=== PATIENT | female | born 1945 | race Caucasian/White ===

== ENCOUNTER 2018-12-15 21:02 | Emergency (ER) | payer OTHER ==
[~2018-12-15] VITALS: Ht 170.2 cm; Wt 77.1 kg
[~2018-12-15 21:02] MED LIST: ASPIRIN81 M2 PO; IBUPROFEN 600600 M1 PO; KEFLEX500 MG PO; LOVASTATIN 20 M20 MG PO; NORCO 5-325 TA1 EACH PO; REQUIP 0.25 M0.25 M1 PO
[2018-12-15] MEDS ORDERED: ACETAMINOPHEN-1 EAC1 PO (21:47)
[2018-12-15 22:27] VITALS: BP 128/87
== END 2018-12-15 22:30 | disposition home or self-care (01) ==
LOC: M.ERS 21:02
DX: S93.402A Sprain of unspecified ligament of left ankle, initial encounter (principal); W11.XXXA Fall on and from ladder, initial encounter; Y93.89 Activity, other specified; Y92.89 Other specified places as the place of occurrence of the external cause; Y99.8 Other external cause status; Z88.0 Allergy status to penicillin

== ENCOUNTER 2019-02-23 06:05 | Emergency (ER) | payer OTHER ==
[~2019-02-23] VITALS: Ht 167.6 cm; Wt 73.5 kg
[~2019-02-23 06:05] MED LIST changes: +ACETAMINOPHEN-1 EAC1 PO
[2019-02-23] MEDS ORDERED: NITROFURANTOIN25 MG PO (06:28)
[2019-02-23] MEDS ORDERED: ALLEGRA-D 12 H1 EAC1 PO (06:28)
[2019-02-23] MEDS ORDERED: FLONASE 0.05%50 MCG NASAL (06:28)
[2019-02-23 06:43] LABS: ABSOLUTE EOSINOPHILS 0.1 thou/uL (0.0-0.7); ABSOLUTE LYMPHOCYTES 1.7 thou/uL (0.8-5.3); ABSOLUTE MONOCYTES 0.5 thou/uL (0.0-1.2); ABSOLUTE NEUTROPHILS 3.9 thou/uL (1.6-8.1); BASOPHILS 0.7 %; EOSINOPHILS 1.5 %; HEMATOCRIT 42.1 % (37.0-47.0); HEMOGLOBIN 14.2 gm/dL (12.0-15.0); LYMPHOCYTES 27.7 %; MCH 32.7 pg (26.0-34.0); MCHC 33.8 g/dL (28.0-37.0); MCV 96.9 fL (80.0-100.0); MONOCYTES 7.6 %; MPV 7.2 fl. (7.2-11.1); NUCLEATED RBCS 0 /100WBC; PLATELET COUNT* 263 thou/uL (150-400); POLYS 62.5 %; RBC 4.34 mil/uL (4.20-5.00); RDW-CV 13.3 % (10.5-14.5); WBC 6.2 thou/uL (4.0-11.0)
[2019-02-23 06:51] LABS: CALCIUM 9.2 mg/dL (8.5-10.1); CREATININE 1.1 mg/dL (0.6-1.3); POTASSIUM 3.9 mmol/L (3.5-5.1)
[2019-02-23 06:56] LABS: TOTAL BILIRUBIN 0.6 mg/dL (<0.1-1.0); TOTAL PROTEIN 7.5 g/dL (6.4-8.2)
[2019-02-23] MEDS ORDERED: FLEXERIL PO (08:00)
[2019-02-23] MEDS ORDERED: IBUPROFEN 800800 M1 PO (08:00)
[2019-02-23 08:14] VITALS: BP 147/74
--- NOTE | 2019-02-23 10:07 | EKG ---
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 : 1945 Requested By: Arun Bermudez Order Number: [id number] MD: Ehsan Bosch Measurements Intervals [place] Rate: 83 P: 39 AK: 147 QRS: -31 QRSD: 86 T: 28 QT: 379 QTc: 446 Interpretive Statements Sinus rhythm Abnormal R-wave progression, early transition Left ventricular hypertrophy Compared to ECG 11/27/2015 01:40:16 Sinus tachycardia no longer present Electronically Signed On 02-23-2019 10:07:41 CDT by Ehsan Bosch [email or web address] <ELECTRONICALLY SIGNED> By: Ehsan Bosch MD, [facility] 02/23/19 1007 0624 3 Ehsan Bosch MD, [facility] /EPI
== END 2019-02-23 08:12 | disposition home or self-care (01) ==
LOC: M.ERS 06:05
PROVIDERS: Family Medicine
DX: R25.2 Cramp and spasm (principal); N30.10 Interstitial cystitis (chronic) without hematuria; Z88.6 Allergy status to analgesic agent; Z88.0 Allergy status to penicillin; Z88.8 Allergy status to other drugs, medicaments and biological substances; Z90.710 Acquired absence of both cervix and uterus; Z90.49 Acquired absence of other specified parts of digestive tract

== ENCOUNTER 2019-05-24 15:30 | Emergency (ER) | payer OTHER ==
[~2019-05-24] VITALS: Ht 170.2 cm; Wt 74.8 kg
[~2019-05-24 15:30] MED LIST changes: +ALLEGRA-D 12 H1 EAC1 PO; +FLEXERIL PO; +FLONASE 0.05%50 MCG NASAL; +IBUPROFEN 800800 M1 PO; +NITROFURANTOIN25 MG PO
[2019-05-24 17:20] VITALS: BP 165/93
== END 2019-05-24 17:21 | disposition home or self-care (01) ==
LOC: M.ERS 15:30
DX: S86.812A Strain of other muscle(s) and tendon(s) at lower leg level, left leg, initial encounter (principal); Z90.49 Acquired absence of other specified parts of digestive tract; Z90.710 Acquired absence of both cervix and uterus; Z88.0 Allergy status to penicillin; Z88.6 Allergy status to analgesic agent; Z88.8 Allergy status to other drugs, medicaments and biological substances; X58.XXXA Exposure to other specified factors, initial encounter; Y93.89 Activity, other specified; Y92.89 Other specified places as the place of occurrence of the external cause; Y99.8 Other external cause status

== ENCOUNTER 2019-06-22 09:23 | Emergency (ER) | payer OTHER ==
[~2019-06-22] VITALS: Ht 170.2 cm; Wt 74.8 kg
[2019-06-22] MEDS ORDERED: FISH OIL 1,0001 EAC9 PO (09:38)
[2019-06-22 10:45] LABS: INFLUENZA A ANTIGEN Positive (Negative); INFLUENZA B ANTIGEN Negative (Negative)
[2019-06-22] MEDS ORDERED: PROAIR HFA8.5 GM INH (10:50)
[2019-06-22] MEDS ORDERED: TESSALON PERLE100 M1 PO (10:50)
[2019-06-22] MEDS ORDERED: PREDNISONE 10 M10 MG PO (10:50)
[2019-06-22 11:17] VITALS: BP 116/54
== END 2019-06-22 11:18 | disposition home or self-care (01) ==
LOC: M.ERS 09:23
PROVIDERS: Physician Assistant
DX: J11.1 Influenza due to unidentified influenza virus with other respiratory manifestations (principal); Z90.710 Acquired absence of both cervix and uterus; Z90.49 Acquired absence of other specified parts of digestive tract; Z88.0 Allergy status to penicillin; Z88.6 Allergy status to analgesic agent; Z88.8 Allergy status to other drugs, medicaments and biological substances

== ENCOUNTER 2020-05-21 16:12 | Inpatient (IN) | payer OTHER ==
[~2020-05-21] VITALS: Ht 167.6 cm; Wt 80.3 kg
[~2020-05-21 16:12] MED LIST changes: +FISH OIL 1,0001 EAC9 PO; +PREDNISONE 10 M10 MG PO; +PROAIR HFA8.5 GM INH; +TESSALON PERLE100 M1 PO
[2020-05-21 16:23] VITALS: BP 159/73
[2020-05-21 16:44] LABS: INFLUENZA A ANTIGEN Negative (Negative)
[2020-05-21 16:55] LABS: ABSOLUTE LYMPHOCYTES 0.9 thou/uL (0.8-5.3); ABSOLUTE MONOCYTES 0.2 thou/uL (0.0-1.2); ABSOLUTE NEUTROPHILS 2.6 thou/uL (1.6-8.1); BASOPHILS 0.3 %; EOSINOPHILS 0.1 %; HEMATOCRIT 40.5 % (37.0-47.0); LYMPHOCYTES 24.4 %; MCH 32.1 pg (26.0-34.0); MCHC 34.6 g/dL (28.0-37.0); MONOCYTES 6.4 %; MPV 6.5 fl. (7.2-11.1); NUCLEATED RBCS 0 /100WBC; PLATELET COUNT* 203 thou/uL (150-400); POLYS 68.8 %; RBC 4.35 mil/uL (4.20-5.00); RDW-CV 13.3 % (10.5-14.5); WBC 3.8 thou/uL (4.0-11.0)
[2020-05-21 17:03] LABS: CREATININE 0.8 mg/dL (0.6-1.3); POTASSIUM 3.1 mmol/L (3.5-5.1)
[2020-05-21 17:13] LABS: ALBUMIN 3.2 g/dL (3.4-5.0); TOTAL BILIRUBIN 0.5 mg/dL (<0.1-1.0)
[2020-05-21 19:00] LABS: BE -1.4 mmol/L (-2 to +3); PCO2 28.9 mmHg (35.0-45.0); PO2 66.8 mmHg (75.0-100.0); pH 7.478 (7.340-7.450)
[2020-05-21 19:13] LABS: URINE BILIRUBIN NEGATIVE (Negative); URINE BLOOD TRACE (Negative); URINE CLARITY CLEAR; URINE COLOR YELLOW; URINE GLUCOSE-RANDOM NEGATIVE (Negative); URINE KETONES NEGATIVE (Negative); URINE LEUKOCYTES-REFLEX TRACE (Negative); URINE NITRITE-REFLEX NEGATIVE (Negative); URINE PROTEIN NEGATIVE (Negative); URINE SPECIFIC GRAVITY 1.015 (1.005-1.030); URINE UROBILINOGEN 0.2 E.U./dl (0.2-1.0)
[2020-05-21 19:20] LABS: BACTERIA-REFLEX 1-9 Few /HPF (None Seen); CASTS None Seen /LPF (None Seen); CRYSTALS None Seen /LPF (None Seen); MUCUS None Seen strn/LPF (None Seen); SQUAMOUS NONE SEEN /LPF (0-3); URINE RBC 0-2 Rare /HPF (0-2); URINE WBC-REFLEX 0-5 Rare /HPF (0-5)
[2020-05-21 21:45] VITALS: BP 146/75; BP 148/86
[2020-05-22 00:29] VITALS: BP 110/61
[2020-05-22 03:55] VITALS: BP 123/68
[2020-05-22 04:55] LABS: ALBUMIN 2.9 g/dL (3.4-5.0); CREATININE 0.6 mg/dL (0.6-1.3); POTASSIUM 3.7 mmol/L (3.5-5.1); TOTAL BILIRUBIN 0.4 mg/dL (<0.1-1.0); TOTAL PROTEIN 6.6 g/dL (6.4-8.2)
[2020-05-22 04:56] LABS: ABSOLUTE LYMPHOCYTES 0.8 thou/uL (0.8-5.3); ABSOLUTE MONOCYTES 0.1 thou/uL (0.0-1.2); BASOPHILS 0.1 %; HEMATOCRIT 39.6 % (37.0-47.0); HEMOGLOBIN 13.5 gm/dL (12.0-15.0); LYMPHOCYTES 28.8 %; MCH 31.6 pg (26.0-34.0); MONOCYTES 2.2 %; MPV 7.2 fl. (7.2-11.1); NUCLEATED RBCS 0 /100WBC; PLATELET COUNT* 206 thou/uL (150-400); POLYS 68.9 %; RBC 4.26 mil/uL (4.20-5.00); RDW-CV 13.4 % (10.5-14.5); WBC 2.9 thou/uL (4.0-11.0)
--- NOTE | 2020-05-22 07:15 | NUR ---
Admit at 2140. She is covid positive. She was exposed by her son who tested positive also. She has had no appetite, diarrhea, body aches, chills and cough. She is weak from all this going on. She has stable vitals. O2 at 2L n/c. Up with assist to bedside commode. Barrier cream applied for redness from loose stools. She hasn't had a stool since she's been here. Meds ordered per Dr. Winchester. She is sinus rhythym on the monitor.
[2020-05-22 08:00] VITALS: BP 140/82
--- NOTE | 2020-05-22 09:06 | NUR ---
CM SPOKE TO THE PT VIA THE HOSPITAL ROOM PHONE TO DISCUSS CM ASSESSMENT PT IS CURRENTLY UNDER ENHANCED PRECAUTIONS FOR COVID 19. PT A&O. PT INFORMS THAT SHE IS NORMALLY INDEPENDENT WITH ADL'S, ACTIVE AND DRIVES. PT RESIDES AT HOME ALONE. PT OWNS 0 DME. PT CURRENTLY ON 2L O2 AND DID NOT USE HOME O2 PRIOR TO ADMIT. PT HAS 0 HX OF HH OR SNF. CM WILL REMAIN AVAILABLE TO ASSIST AND FOLLOW FOR D/C PLANNING.
--- NOTE | 2020-05-22 10:41 | EKG ---
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 : 1945 Requested By: Teri Leach Order Number: [id number] MD: Ehsan Bosch Measurements Intervals [place] Rate: 77 P: 36 MS: 125 QRS: -26 QRSD: 98 T: 34 QT: 398 QTc: 451 Interpretive Statements Sinus rhythm Probable left atrial enlargement Borderline left axis deviation Abnormal R-wave progression, early transition Minimal ST depression, lateral leads Baseline wander in lead(s) V1 Compared to ECG 02/23/2019 06:24:25 ST (T wave) deviation now present Left ventricular hypertrophy no longer present Electronically Signed On 05-22-2020 10:41:13 HEALTHC[employer] RECEPTIONIST by Ehsan Bosch [email or web address] <ELECTRONICALLY SIGNED> By: Ehsan Bosch MD, [facility] 05/22/20 1041 11 11 Ehsan Bosch MD, [facility] /EPI
--- NOTE | 2020-05-22 11:19 | NUR ---
Nutrition: pt admitted with COVID + status, influenza B + also. Risked for poor intake, weight loss. Chart reveiwed. Called and s/w pt over phone. Reports poor appetite prior to admit for a week or so. Weight loss of 7# or 4% over the past 2 months-not significant and does report fluctuations. 2 weights takn on admit, 168# and 188#. Pt reports 168# is accurate. Ate well this am, > 90% of breakfast. Denies need for supplements. Continue to follow for adequate intake trends. Currently on and sounded winded speaking with RD. Dot as low nutrition risk for now.
[2020-05-22 12:00] VITALS: BP 108/58
[2020-05-22 16:00] VITALS: BP 104/54
--- NOTE | 2020-05-22 17:03 | NUR ---
PT RESTING IN BED THROUGHOUT SHIFT.PT REPOSITIONS SELF FREQUENTLY. PT UP TO BSC AND SITS ON SIDE OF BED. O2@4L NC SATS DECREASED TO 80S ON 2L. IVF INFUSING. PT TOLERATING PO WELL. SON UPDATED ON PLAN OF CARE
[2020-05-22 20:00] VITALS: BP 105/60
[2020-05-23] VITALS: BP 110/59
[2020-05-23 03:56] VITALS: BP 119/68
[2020-05-23 03:57] LABS: HEMATOCRIT 35.6 % (37.0-47.0); HEMOGLOBIN 12.1 gm/dL (12.0-15.0); MCH 31.4 pg (26.0-34.0); MCHC 33.9 g/dL (28.0-37.0); MCV 92.8 fL (80.0-100.0); RBC 3.84 mil/uL (4.20-5.00); RDW-CV 13.3 % (10.5-14.5)
[2020-05-23 03:58] LABS: WBC 10.2 thou/uL (4.0-11.0)
[2020-05-23 04:17] LABS: ALBUMIN 2.8 g/dL (3.4-5.0); CALCIUM 8.4 mg/dL (8.5-10.1); CREATININE 0.8 mg/dL (0.6-1.3); POTASSIUM 3.8 mmol/L (3.5-5.1); TOTAL BILIRUBIN 0.2 mg/dL (<0.1-1.0); TOTAL PROTEIN 6.1 g/dL (6.4-8.2)
--- NOTE | 2020-05-23 07:16 | NUR ---
PT CARE ASSUMED AT 1930. SAT MAINTAINED IN O2. ALERT AND ORIENTED X4. CALL LIGHT WITHIN REACH AND BED IN LOW POSITION. HOURLY ROUNDING DONE FOR PT SAFETY.
[2020-05-23 08:00] VITALS: BP 109/56
[2020-05-23 14:07] VITALS: BP 108/51
[2020-05-23 20:00] VITALS: BP 130/64
[2020-05-24] VITALS (7 sets, daily range): BP systolic 108–137; BP diastolic 56–70
[2020-05-24 05:49] LABS: HEMATOCRIT 36.9 % (37.0-47.0); HEMOGLOBIN 12.2 gm/dL (12.0-15.0); MCHC 33.1 g/dL (28.0-37.0); MCV 93.7 fL (80.0-100.0); MPV 7.7 fl. (7.2-11.1); RBC 3.94 mil/uL (4.20-5.00); RDW-CV 13.3 % (10.5-14.5); WBC 13.5 thou/uL (4.0-11.0)
[2020-05-24 06:05] LABS: CALCIUM 8.5 mg/dL (8.5-10.1); CREATININE 0.8 mg/dL (0.6-1.3); MAGNESIUM 2.3 mg/dL (1.8-2.4); POTASSIUM 3.5 mmol/L (3.5-5.1); TOTAL BILIRUBIN 0.2 mg/dL (<0.1-1.0); TOTAL PROTEIN 6.4 g/dL (6.4-8.2)
--- NOTE | 2020-05-24 18:51 | NUR ---
PT AO X4 LYING IN BED AT TIME OF ASSESSMENT, SHE IS NOW ON RA SATTING APPROPRIATELY, SHE IS COUGHING MORE HARSHLY WITH SOME PRODUCTION. PT GETTING IV ANTIBIOTICS PER MAR. SHE IS EATING MOST OF MEALS AND DENIES PAIN.
[2020-05-25 04:19] LABS: HEMATOCRIT 36.9 % (37.0-47.0); HEMOGLOBIN 12.4 gm/dL (12.0-15.0); MCH 31.2 pg (26.0-34.0); MCHC 33.5 g/dL (28.0-37.0); MCV 92.9 fL (80.0-100.0); MPV 7.4 fl. (7.2-11.1); NUCLEATED RBCS 0 /100WBC; PLATELET COUNT* 268 thou/uL (150-400); RBC 3.97 mil/uL (4.20-5.00); RDW-CV 13.5 % (10.5-14.5); WBC 12.6 thou/uL (4.0-11.0)
[2020-05-25 04:31] LABS: CALCIUM 8.1 mg/dL (8.5-10.1); CREATININE 0.8 mg/dL (0.6-1.3); POTASSIUM 3.7 mmol/L (3.5-5.1); TOTAL BILIRUBIN 0.3 mg/dL (<0.1-1.0); TOTAL PROTEIN 6.1 g/dL (6.4-8.2)
--- NOTE | 2020-05-25 04:39 | NUR ---
ASSUMED CARE OF PT AFTER REPORT AT 1930. PT A&OX4. VSS. PHYSICAL ASSESSMENT COMPLETED AND CHARTED. PT ON RA. PT TRACING SR ON TELE. PT UPADLIB TO BSC. PT REQUESTING MED FOR CONSTIPATION-MED GIVEN PER JUL. PT DENIES PAIN. CALL LIGHT WITHIN REACH.
[2020-05-25 04:53] VITALS: BP 134/79
[2020-05-25 06:04] LABS: ABSOLUTE LYMPHOCYTES 1.6 thou/uL (0.8-5.3); ABSOLUTE MONOCYTES 0.8 thou/uL (0.0-1.2); ABSOLUTE NEUTROPHILS 10.2 thou/uL (1.6-8.1); ATYPICAL LYMPHS 2 %; PLATELET ESTIMATE ADEQUATE
[2020-05-25 06:05] LABS: CLUMPED PLTS OCCASIONAL; LARGE PLATELETS OCCASIONAL; TOXIC GRANULATION 1+
[2020-05-25] MEDS ORDERED: VENTOLIN HFA 1818 GM INH (08:25)
[2020-05-25] MEDS ORDERED: DEXAMETHASONE1 MG PO (08:25)
[2020-05-25] MEDS ORDERED: DOXYCYCLINE 10100 MG PO (08:25)
[2020-05-25] MEDS ORDERED: PROTONIX40 M4 PO (08:25)
[2020-05-25] MEDS ORDERED: TESSALON PERLE100 MG PO (08:25)
[2020-05-25 09:00] VITALS: BP 129/65
[2020-05-25 12:00] VITALS: BP 124/64
--- NOTE | 2020-05-25 12:53 | NUR ---
PT AO X4 LYING IN BED AT TIME OF ASSESSMENT. SHE IS STILL COUGHING BUT NOT HAVING THE PRODUCTION SHE WAS LIKE BEFORE. PT IS ON ROOM AIR SATTING APPROPRIATELY, SHE HAS BEEN GETTING IV REMDESIVIR AND AZITROMYCIN WELL STEROIDS. SHE IS GOING TO BE DISCHARGED TODAY. SHE HAS BEEN EATING MOST OF HER MEAL TRAY AND HAS BEEN UP TO THE TOILET INDEPENDENTLY. IV REMOVED INTACT. PT WAS TAKEN BY WHEELCHAIR TO PRIVATE VEHICLE WHERE HER SON HELPED HER TO CAR. PRESCRIPTIONS CALLED TO [facility] AT [facility] [address] DISCHARGE INSTRUCTIONS WERE REVIEWED WITH NO QUESTIONS.
== END 2020-05-25 12:50 | disposition home or self-care (01) | DRG 177 ==
LOC: M.ERS 16:12 → M.ORTHSURG 19:27 → M.TBA-ER 19:27 → M.ORTHSURG 21:39
PROVIDERS: Internal Medicine; Nurse Practitioner Family; ADMIT Internal Medicine; ATTEND Internal Medicine
PROC: XW033E5 Introduction of Remdesivir Anti-infective into Peripheral Vein, Percutaneous Approach, New Technology Group 5 (ICD-10-PCS; principal; 2020-05-22)
DX: U07.1 COVID-19 (principal); J12.89 Other viral pneumonia; J96.01 Acute respiratory failure with hypoxia; J10.08 Influenza due to other identified influenza virus with other specified pneumonia; E78.5 Hyperlipidemia, unspecified; Z90.710 Acquired absence of both cervix and uterus; Z90.49 Acquired absence of other specified parts of digestive tract; Z79.899 Other long term (current) drug therapy; Z79.82 Long term (current) use of aspirin; Z88.0 Allergy status to penicillin; Z88.8 Allergy status to other drugs, medicaments and biological substances